=== PATIENT | female | born 1970 | race Caucasian/White ===

== ENCOUNTER 2016-10-29 09:32 | Emergency (ER) | payer SELFPAY ==
[~2016-10-29] VITALS: Ht 160 cm; Wt 78.1 kg
[~2016-10-29 09:32] MED LIST: IBUP-1542 PO; POLY10DR19 LEFT EYE
[2016-10-29 09:33] VITALS: Ht 160 cm; Wt 78.1 kg
== END 2016-10-29 11:10 | disposition left against medical advice (07) ==
LOC: FTE 09:32
DX: Z53.21 Procedure and treatment not carried out due to patient leaving prior to being seen by health care provider (principal)

== ENCOUNTER 2017-05-24 19:09 | Emergency (ER) | payer MEDICAID ==
[~2017-05-24] VITALS: Ht 170.2 cm; Wt 71.0 kg
[2017-05-24 19:12] VITALS: Ht 170.2 cm; Wt 71.0 kg
[2017-05-24] MEDS ORDERED: HYDROCODONE/APAP (5/325) TAB PO ONE (20:00)
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
--- NOTE | 2017-05-24 20:19 | RADRPT ---
PROCEDURE: XR Foot. CLINICAL INDICATION: Left foot pain. Laceration TECHNIQUE: Three views of the left foot are available for review. COMPARISON: None available FINDINGS: No acute fracture or dislocation is seen. 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 Joint spaces are intact. Bony mineralization is normal. Four foreign bodies are present which measure roughly 1 mm each along the plantar aspect of the fore foot and lateral view. No radiopaque foreign body is identified. IMPRESSION: 1. Multiple tiny foreign bodies in the soft tissues of plantar aspect of the forefoot. 2. No evidence of fracture, dislocation or bone destruction. RPTAT: HLDM .Nehemiah Franks MD, MD Date Time Electronically viewed and signed by .Nehemiah Franks MD, on 05/24/2017 20:19 .M/
[2017-05-24] MEDS ORDERED: LIDOCAINE 1% (MDV) 20 ML INJ SC ONE (20:30)
[2017-05-24] MEDS ORDERED: IBUP-1542 PO (20:41)
[2017-05-24] MEDS ORDERED: CLIN-73 PO (20:41)
== END 2017-05-24 20:57 | disposition home or self-care (01) ==
LOC: FTE 19:09
DX: S91.322A Laceration with foreign body, left foot, initial encounter (principal); I10 Essential (primary) hypertension; F17.210 Nicotine dependence, cigarettes, uncomplicated; W26.8XXA Contact with other sharp object(s), not elsewhere classified, initial encounter; Y92.9 Unspecified place or not applicable
CPT/HCPCS: 12032; 73630; Z7502; Z7610

== ENCOUNTER 2018-04-30 16:46 | Emergency (ER) | END 2018-04-30 19:21 | disposition home or self-care (01) ==

== ENCOUNTER 2018-10-08 03:06 | Emergency (ER) | payer OTHER ==
[~2018-10-08] VITALS: Ht 167.6 cm; Wt 94.0 kg
[~2018-10-08 03:06] MED LIST changes: +CEPH-443 PO; +CLIN300C10 PO; +MUPI22OI2 TOP
[2018-10-08 03:10] VITALS: Ht 167.6 cm; Wt 94.0 kg
[2018-10-08] MEDS ORDERED: IBUPROFEN 600 MG TAB PO STA (03:40)
[2018-10-08] MEDS ORDERED: IBUP-1542 PO (03:44)
[2018-10-08] MEDS ORDERED: PSEU120T68 PO (03:44)
[2018-10-08] MEDS ORDERED: AMOX1TAB10 PO (03:44)
[2018-10-08] MEDS ORDERED: GUAI5SYR2 PO (03:44)
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
[2018-10-08] MEDS ORDERED: AMOXICILLIN/CLAV 875 MG TAB PO ONE (04:00)
[2018-10-08 04:27] VITALS: BP 170/88; PULSE 87; RESP 17
== END 2018-10-08 04:27 | disposition home or self-care (01) ==
LOC: E/R 03:06
DX: H66.001 Acute suppurative otitis media without spontaneous rupture of ear drum, right ear (principal); J01.90 Acute sinusitis, unspecified; J40 Bronchitis, not specified as acute or chronic; I10 Essential (primary) hypertension; Z87.891 Personal history of nicotine dependence
CPT/HCPCS: Z7610 ×2; 99283

== ENCOUNTER 2018-12-29 19:33 | Emergency (ER) | payer OTHER ==
[~2018-12-29] VITALS: Ht 172.7 cm; Wt 97.7 kg
[~2018-12-29 19:33] MED LIST changes: +AMOX1TAB10 PO; -CEPH-443 PO; -CLIN300C10 PO; +GUAI5SYR2 PO; -MUPI22OI2 TOP; -POLY10DR19 LEFT EYE; +PSEU120T68 PO
[2018-12-29 19:51] VITALS: Ht 172.7 cm; Wt 97.7 kg
[2018-12-29] MEDS ORDERED: ONDANSETRON 4 MG INJ IV STA (21:31)
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
[2018-12-29] MEDS ORDERED: METHYLPREDNISOLONE 125 MG INJ IV ONE (22:00)
[2018-12-29] MEDS ORDERED: IOHEXOL 300MG/ML 150 ML BTL ONE (23:43)
[2018-12-29] MEDS ORDERED: SOD CHLORIDE 0.9% 100 ML ONE (23:43)
[2018-12-30] MEDS ORDERED: CLINDAMYCIN 600 MG/D5W (PMX) 50 ML IVPB SCH (01:00)
[2018-12-30] MEDS ORDERED: TRIMETHOPRIM/SULFAMETHOX (DS) TAB PO ONE (01:00)
[2018-12-30] MEDS ORDERED: CLIN300C10 PO (01:05)
[2018-12-30] MEDS ORDERED: SULF1TAB31 PO (01:06)
[2018-12-30] MEDS ORDERED: LORA10TA3 PO (01:06)
[2018-12-30] MEDS ORDERED: PRED20TA PO (01:06)
[2018-12-30] MEDS ORDERED: IBUP800T48 PO (01:06)
[2018-12-30] MEDS ORDERED: EPIN0.3P4 INJ (01:07)
[2018-12-30] MEDS ORDERED: BEN25 PO (01:07)
[2018-12-30] MEDS ORDERED: FAMO-96 PO (01:07)
[2018-12-30] MEDS ORDERED: SOD CHLORIDE 0.9% 500 ML IV ONE (01:30)
[2018-12-30 02:35] VITALS: BP 157/89; PULSE 87; RESP 20
== END 2018-12-30 02:35 | disposition home or self-care (01) ==
LOC: FTE 19:33
DX: L03.211 Cellulitis of face (principal); I10 Essential (primary) hypertension; F17.210 Nicotine dependence, cigarettes, uncomplicated
CPT/HCPCS: 36415; 70486; 80053; 81025; 85025; 96374; 96375; J2405; J2930; J7040; Q9967; Z7502; Z7610